=== PATIENT | male | born 1980 | race Caucasian/White ===

== ENCOUNTER 2017-06-10 13:25 | Emergency (ER) | payer MEDICARE, MEDICAID ==
[~2017-06-10] VITALS: Ht 172.7 cm; Wt 82.7 kg
[2017-06-10 13:27] VITALS: BP 114/74; PULSE 67; RESP 20; O2SAT 93
--- NOTE | 2017-06-10 15:22 | ED.REPORT ---
HPI-Extremity Problem Lower Date of Service Jun 10, 2017 ED Provider: Krunal Boo DO A nonverbal 36 year old male with a history of schizophrenia, intellectual disability, anxiety, autism and depression is brought to the ED by a caregiver due to left calf swelling. The pt was noted by staff to have left calf swelling at 18:00 last night, but it was markedly more swollen this morning. The pt has not communicated that he is experiencing any pain from this leg. At baseline, he does not have any swelling in this area. He has a chronic rash on his lower extremities that in unchanged with this leg swelling. Nursing Notes Stated Complaint: LEFT CALF SWELLING Chief Complaint: Extremity Trauma Nursing Notes Reviewed: Yes Allergies: Coded Allergies: aripiprazole (Verified Allergy, Mild, 06/10/17) bee venom protein (honey bee) (Verified Allergy, Mild, 06/10/17) General Time Seen by MD: 15:20 Chief Complaint Other (Left calf swelling) Hx Obtained From: [employer] Driver Arrived By: Walk-in Onset Occurred: 1 day ago Symptom Duration: Since onset Recent Healthcare: No recent hospitalization, Recent doctor visit Similar Sx Previous: No Past Medical History Past Medical History nonverbal schizophrenia intellectual disability anxiety autism depression estropia amblyopia constipation Past Surgical History none reported Smoking History Unknown if Ever Smoker Social History has caregivers Ambulatory Status Independent Review of Systems Constitutional: Denies: Fever Musculoskeletal: Reports: Extremity swelling, Denies: Extremity pain Complete sys rev & neg: except as marked. Respiratory: Denies: Non-productive cough, Shortness of breath Physical Exam Initial Vital Signs Vital Signs (First) Date Time Temp Pulse Resp B/P Pulse Ox O2 Delivery O2 Flow Rate FiO2 06/10/17 13:27 36.9 67 20 114/74 93 Room Air Initial VS: Reviewed Lower Extremity / Pelvis / MS: Neurologic intact, Vascular intact left calf visibly swollen no warmth or tenderness DP and PT pulses 2/4 less than 3 second cap refill Ankle / Foot: Neurologic intact, Vascular intact General/Constitutional: Awake, Alert Respiratory / Chest: Atraumatic, Breath sounds NL, Breath sounds = bilat, No respiratory distress Cardiovascular: Heart rate NL, Regular rhythm, Heart sounds NL Skin: Color NL, Warm, Dry punctate rash overlying both calves, worse on left Neurologic: No motor deficits, No sensory deficits Head / Eyes: Atraumatic, Normocephalic, PERRL, EOMI ENT: Atraumatic, Airway patent, Mucous membranes moist Neck: Atraumatic, Supple, Full range of motion Abdomen: Atraumatic, Soft, Non-tender Back: Atraumatic, Full range of motion Upper Extremity / MS: Atraumatic, Full range of motion Psychiatric: Affect NL, Mood NL Interpretation & Diagnostics Interpretation & Diagnostics: Venous Duplex: IMPRESSION: No evidence of deep venous thrombosis. Dictated by: Petey Morales M.D. on 06/10/2017 at 19:01 Approved by: Petey Morales M.D. on 06/10/2017 at 19:02 Re-Eval/Medical Decision Med Decision/Clinical Course No evidence of compartment syndrome, pulled muscle or any acute injury. US neg for DVT. Caregivers reassured not dangerous causes for unilateral leg swelling identified. Instructions for f/u given. Source of Hx: Old records Re-Evaluation/Progress : Time of Eval: 19:13 Patient Status: Condition improved Re-Evaluation/Progress Note: Pt rechecked, who is sleeping. The diagnosis and plan for discharge are discussed. The pt's caregiver understands and agrees with the plan. All questions are addressed at this time. Counseled Regarding: Diagnosis, Lab results, Need for follow-up, When/why to return to ED Discharge & Departure Impression: Primary Impression: Leg swelling Disposition: Home Discharge Condition All VS Reviewed: Yes Condition: Stable Additional Instructions: Thank you for allowing us to be a part of Teddy's care. There does not appear to be a dangerous cause for his swelling. Call his primary care physician to arrange a follow up appointment next week. Return to the emergency department if he develops any new or worsening symptoms such as leg pain or increasing swelling. Referrals: Sanna Rocha (PCP) Scribe Attestation Portions of this note were transcribed by Michelle Reese. I, Dr. Boo personally performed the history, physical exam and medical decision-making; I reviewed and confirmed the accuracy of the information in the transcribed note. copies to: Sanna Rocha Gary R DO Jun 10, 2017 15:22 MICHELLE REESE Jun 10, 2017 15:31
--- NOTE | 2017-06-10 19:04 | DRSVH ---
PROCEDURE: US VEINOUS LEG DUPLEX UNILATERAL, LEFT INDICATIONS: left calf swelling, in waiting room TECHNIQUE: Real-time imaging, as well as color and pulse Doppler interrogation, were performed of the lower extr emity deep veins from the inguinal ligament to the popliteal fossa. COMPARISON: None. FINDINGS: The deep veins are normally compressible, and free of intraluminal thrombus. Color and pu lse Doppler demonstrate normal phasic intraluminal flow. There is normal augmentation response to di stal compression maneuver. There is a nonspecific small fluid collection measuring 3 x 8 x 3 mm in t he superficial subcutaneous soft tissues IMPRESSION: No evidence of deep venous thrombosis. Dictated by: Petey Morales M.D. on 06/10/2017 at 19:01 Approved by: Petey Morales M.D. on 06/10/2017 at 19:02
== END 2017-06-10 19:41 | disposition home or self-care (01) ==
LOC: SED 13:25
DX: M79.89 Other specified soft tissue disorders (principal); F20.9 Schizophrenia, unspecified; F41.9 Anxiety disorder, unspecified; F84.0 Autistic disorder; F32.9 Major depressive disorder, single episode, unspecified; Z91.030 Bee allergy status